=== PATIENT | female | born 1970 | race Caucasian/White ===

== ENCOUNTER 2023-01-20 09:59 | Observation (INO) | payer BC, OTHER ==
[2023-01-15 15:45] LABS: BASOPHILS % 0.3 % (0.0-1.0); EOSINOPHILS % 0.3 % (0.0-6.0); HEMATOCRIT 43.8 % (34.2-44.1); HEMOGLOBIN 14.4 g/dL (12.0-16.0); LYMPHOCYTES % 19.5 % (18.0-39.1); MEAN CORPUSCULAR HEMOGLOBIN 30.2 pg (28-32); MEAN CORPUSCULAR HGB CONC 32.9 g/dL (31-35); MEAN CORPUSCULAR VOLUME 91.8 fL (81-99); MONOCYTES # (AUTO) 0.7 (0.2-0.8); MONOCYTES % 6.6 % (4.4-11.3); NEUTROPHILS # (AUTO) 7.5 (2.1-6.9); NEUTROPHILS % 73.1 % (38.7-80.0); PLATELET COUNT 262 x10e3/uL (140-360); RED BLOOD COUNT 4.77 x10e6/uL (3.6-5.1); RED CELL DISTRIBUTION WIDTH 13.4 % (11.7-14.4)
[2023-01-15 16:23] LABS: ALBUMIN 3.7 g/dL (3.5-5.0); ALBUMIN/GLOBULIN RATIO 1.1 (0.8-2.0); ANION GAP 12.8 mmol/L (8-16); CALCIUM 9.4 mg/dL (8.4-10.2); CREATININE, SERUM 0.71 mg/dL (0.57-1.11); POTASSIUM 3.8 mmol/L (3.5-5.1)
[~2023-01-20] VITALS: Ht 157.5 cm; Wt 72.6 kg
[~2023-01-20 09:59] MED LIST: ADDERALL 10 MG10 MG PO; AMBIEN5 MG PO; DEXILANT30 MG PO; METFORMIN HCL500 M2 PO; OZEMPIC0.25 MG/0. SC
[2023-01-20] MEDS ORDERED: CEFAZOLIN SODIUM 2 GM ONE (10:33)
[2023-01-20] MEDS ORDERED: SEVOFLURANE INHAL SOLN 250 ML PEN BTL ONE (11:24)
[2023-01-20] MEDS ORDERED: ACETAMINOPHEN 1000 MG/100 ML IV ONE (11:24)
[2023-01-20] MEDS ORDERED: DEXAMETHASONE SOD PHOS INJ 4 MG/ML SDV ONE (11:24)
[2023-01-20] MEDS ORDERED: ONDANSETRON HCL INJ 2MG/ML 2ML 2 MG/ML VIAL ONE (11:24)
[2023-01-20] MEDS ORDERED: LIDOCAINE HCL 2% LOCAL INJ 5 ML SDV VIAL INJ ONE (11:24)
[2023-01-20] MEDS ORDERED: POVIDONE IODINE 0.05% 0.05 % ML PO ONE (11:24)
[2023-01-20] MEDS ORDERED: PROPOFOL IV EMULSION 10 MG/ML 20 ML VIAL ONE (11:24)
[2023-01-20] MEDS ORDERED: KETOROLAC TROMETHAMINE 30 MG/ML VIAL ONE (11:24)
[2023-01-20] MEDS ORDERED: SUGAMMADEX SODIUM 200 MG/2 ML VIAL IV ONE ×2 (11:24→12:49)
[2023-01-20] MEDS ORDERED: ROCURONIUM BROMIDE 10 MG/ML 5ML VIAL IV ONE (11:24)
[2023-01-20] MEDS ORDERED: BUPIVACAINE HCL 0.5% INJ 30 ML VIAL INJ ONE (12:12)
[2023-01-20] MEDS ORDERED: Morphine 10mg syringe 10 MG/ML INJ ONE (12:23)
[2023-01-20] MEDS ORDERED: FENTANYL CITRATE/PF 100MCG/2 ML INJ ONE (12:23)
[2023-01-20] MEDS ORDERED: MIDAZOLAM HCL 2 MG/2 ML VIAL ONE (12:23)
[2023-01-20] MEDS ORDERED: ACETAMINOPHEN 1000 MG/100 ML 100 ML IV ONE (12:49)
[2023-01-20] MEDS ORDERED: HYDROCODONE/APAP 5MG-325MG TAB PO PRN (14:15)
[2023-01-20] MEDS ORDERED: DEXTROSE 50% SYRINGE 50 ML IV PRN (14:15)
[2023-01-20] MEDS ORDERED: ACETAMINOPHEN 325 MG TAB PO PRN (14:15)
[2023-01-20] MEDS ORDERED: HYDRALAZINE HCL 20 MG/ML VIAL ONE (15:16)
[2023-01-20] MEDS: ONDANSETRON HCL INJ 2MG/ML 2ML 2 MG/ML VIAL IV PRN (15:33)
[2023-01-20 16:17] VITALS: BP 139/78
[2023-01-20] MEDS: INSULIN LISPRO 100 UNIT/1 ML 3ML VIAL SQ SCH ×2 (16:30→21:53)
[2023-01-20] MEDS: HYDROMORPHONE 1MG/1ML INJ IV PRN (16:31)
[2023-01-20] MEDS: METFORMIN HCL 750 MG TAB ER PO SCH (16:33)
[2023-01-20] MEDS: DEXTROSE 5%/LACTATED RINGERS 1,000 ML IV SCH (16:33)
[2023-01-20 17:16] VITALS: BP 139/78
[2023-01-20 20:00] VITALS: BP 159/90
[2023-01-20] MEDS: CEFAZOLIN SODIUM 2 GM in SODIUM CHLORIDE 0.9% 100 ML IV SCH (20:47)
[2023-01-20] MEDS ORDERED: ZOLPIDEM TARTRATE 10 MG TAB PO SCH (21:00)
[2023-01-21] MEDS: DEXTROSE 5%/LACTATED RINGERS 1,000 ML IV SCH ×2 (01:34→06:15)
[2023-01-21 05:12] LABS: BASOPHILS % 0.1 % (0.0-1.0); HEMATOCRIT 41.3 % (34.2-44.1); HEMOGLOBIN 13.5 g/dL (12.0-16.0); LYMPHOCYTES # (AUTO) 1.4 (1.0-3.2); LYMPHOCYTES % 9.8 % (18.0-39.1); MEAN CORPUSCULAR HEMOGLOBIN 30.4 pg (28-32); MEAN CORPUSCULAR HGB CONC 32.7 g/dL (31-35); MONOCYTES # (AUTO) 1.2 (0.2-0.8); MONOCYTES % 8.4 % (4.4-11.3); NEUTROPHILS # (AUTO) 11.4 (2.1-6.9); NEUTROPHILS % 81.5 % (38.7-80.0); PLATELET COUNT 251 x10e3/uL (140-360); RED BLOOD COUNT 4.44 x10e6/uL (3.6-5.1); RED CELL DISTRIBUTION WIDTH 13.4 % (11.7-14.4)
[2023-01-21] MEDS: CEFAZOLIN SODIUM 2 GM in SODIUM CHLORIDE 0.9% 100 ML IV SCH (05:32)
[2023-01-21 05:38] VITALS: BP 149/78
[2023-01-21] MEDS ORDERED: HYDROCODON-ACE1 EA11 PO (06:18)
[2023-01-21 07:15] VITALS: BP_SYST 132; BP_SYST 156; BP_DIAS 77; BP_DIAS 88
[2023-01-21] MEDS: INSULIN LISPRO 100 UNIT/1 ML 3ML VIAL SQ SCH (07:37)
[2023-01-21] MEDS: HYDROMORPHONE 1MG/1ML INJ IV PRN (07:39)
[2023-01-21] MEDS: ONDANSETRON HCL INJ 2MG/ML 2ML 2 MG/ML VIAL IV PRN (07:39)
[2023-01-21] MEDS: METFORMIN HCL 750 MG TAB ER PO SCH (07:41)
[2023-01-21 08:30] VITALS: BP 156/88
== END 2023-01-21 09:05 | disposition home or self-care (01) ==
LOC: OR 09:59 → PACU V 14:15 → MED/SURG 15:25
PROVIDERS: ADMIT Surgery; ATTEND Surgery
DX: K21.9 Gastro-esophageal reflux disease without esophagitis (principal); K44.9 Diaphragmatic hernia without obstruction or gangrene; K80.10 Calculus of gallbladder with chronic cholecystitis without obstruction; Z01.818 Encounter for other preprocedural examination; Z20.822 Contact with and (suspected) exposure to COVID-19
CPT/HCPCS: 0223U; 36415 ×3; 43280; 47562; 80053; 81025; 82948 ×2; 85025 ×2; 88304; 93005; 94799 ×2; G0378 ×2; J0131; J0360; J0690; J1100; J1170 ×2; J1885; J2001; J2250; J2270; J2405 ×2; J2704; J3010; J7050 ×2; J7121